=== PATIENT | female | born 1945 | race Caucasian/White ===

== ENCOUNTER 2016-08-31 04:53 | Day surgery (SDC) | payer BC ==
[2016-08-30 12:48] VITALS: BMI 25.0
[2016-08-31] MEDS ORDERED: ONDANSETRON 4 MG/2 ML VIAL IVPUSH PRN (08:34)
[2016-08-31] MEDS ORDERED: oxyCODONE HCL 5 MG TABLET PO PRN ×2 (08:34→12:44)
[2016-08-31] MEDS ORDERED: LACTATED RINGERS SOLUTION 1,000 ML IV SCH (08:45)
[2016-08-31] MEDS ORDERED: LIDOCAINE HCL/PF 2% SDV 5ML VIAL ONE (11:58)
[2016-08-31] MEDS ORDERED: PROPOFOL 20 ML ONE (11:58)
[2016-08-31] MEDS ORDERED: DEXAMETHASONE SOD PHOSPHATE 4 MG/1 ML VIAL ONE (11:59)
[2016-08-31] MEDS ORDERED: ceFAZolin SODIUM 1 GM VIAL IVPB ONE (12:02)
[2016-08-31] MEDS ORDERED: ceFAZolin SODIUM 1 GM VIAL ONE (12:02)
[2016-08-31] MEDS ORDERED: GENTAMICIN SO4 80 MG/2 ML VIAL ONE (12:02)
[2016-08-31] MEDS ORDERED: GENTAMICIN SO4 80 MG/2 ML VIAL IVPB ONE (12:06)
[2016-08-31] MEDS ORDERED: FUROSEMIDE 40 MG/4 ML INJECTABLE VIAL ONE (12:19)
--- NOTE | 2016-08-31 12:44 | OP ---
Operative Note - Note: Operative Date: 08/31/16 Pre-Operative Diagnosis: left ureteral stone Operation: cysto/rtg/left ureteroscopy/laser litho/stent Findings: 1 cmm LUP stone, no tumor Post-Operative Diagnosis: Same as Pre-op Surgeon: Mulugeta Calzada Anesthesia: General Estimated Blood Loss (mls): 5 Drains & Tubes with Location: 7fr 24cm stent Operative Report Dictated: Yes
[2016-08-31] MEDS ORDERED: ACETAMINOPHEN INJECTION 100 ML IVPB ONE (12:54)
[2016-08-31 13:37] VITALS: TEMP 97.5
[2016-08-31] MEDS ORDERED: DEXTROSE 5%-0.45% SALINE 1,000 ML IV SCH (13:45)
[2016-08-31 16:16] VITALS: BP 120/62; PULSE 60
--- NOTE | 2016-08-31 17:11 | OP ---
DATE OF OPERATION: 08/31/2016 PREOPERATIVE DIAGNOSIS: Left kidney stone and possible stricture versus mass in the ureteropelvic junction. POSTOPERATIVE DIAGNOSIS: Left kidney stone. PROCEDURE: Cystoscopy, ureteroscopy, retrograde pyelogram, ureteroscopy, laser lithotripsy, stent placement. INDICATION: The patient is a 71-year-old female with workup for hematuria, noted to have a 1-cm stone in the left kidney. Also with possible UPJ narrowing versus mass at the UPJ. She was taken to OR for cystoscopy, retrograde pyelogram, possible biopsy and laser lithotripsy. Patient taken to the OR, placed supine on the table, cardiac monitoring administered, general anesthesia established. She was prepped and draped in dorsal supine position. The 22 sheath cystoscope was inserted without difficulty. The urethra was normal. The bladder was visibly normal, no tumors or stones noted in the bladder. Attention was turned to the left ureteral orifice. This was intubated with a ureteral catheter. Contrast injected for retrograde pyelogram. There was no evidence of hydronephrosis and there was a stone noted in the upper pole. A guidewire was advanced into the left renal pelvis. Over the guidewire, a dual-lumen catheter was advanced and a 2nd guidewire was advanced into the left renal pelvis. A flexible ureteroscope was advanced through the entire ureter and passed the UPJ. The UPJ was a bit narrowed but mildly so and there was no tumor there. The entire collecting system was inspected and a 1-cm stone was seen in the upper pole collecting system, otherwise no other abnormalities are noted. No other tumors or stones were noted. Attention was turned to the stone then. Using the 200-micron laser fiber, the stone was pulverized to fine dust and 1 to 2-mm fragments using a holmium laser until the entire stone was fragmented. Repeat ureteroscopy revealed no evidence of residual large stone fragments, no evidence of any tumors. Again, entire ureter was inspected on the way out and no other stones or tumor were noted. The ureteroscope was then removed. Over the remaining guidewire, a 7-[place] 24-cm double pigtail stent was then advanced in a monorail fashion. Fluoroscopy confirmed the stent to be in good position. Patient was then awoken from anesthesia and transferred to recovery in stable condition. There were no complications. Estimated blood loss minimal. HAMLET ESQUIVEL M.D. [id number]
== END 2016-08-31 15:15 | disposition home or self-care (01) ==
LOC: JASU-SURG 04:53
PROVIDERS: ATTEND Urology
PROC: 0TF48ZZ Fragmentation in Left Kidney Pelvis, Via Natural or Artificial Opening Endoscopic (ICD-10-PCS; principal; 2016-08-31 09:30)
PROC: 0T778DZ Dilation of Left Ureter with Intraluminal Device, Via Natural or Artificial Opening Endoscopic (ICD-10-PCS; 2016-08-31 09:30)
PROC: BT1FYZZ Fluoroscopy of Left Kidney, Ureter and Bladder using Other Contrast (ICD-10-PCS; 2016-08-31 09:30)
DX: N20.0 Calculus of kidney (principal)
CPT/HCPCS: 76000-TC; 94760